=== PATIENT | male | born 1970 | race Hispanic/Latino ===

== ENCOUNTER 2020-02-06 15:55 | Emergency (ER) | payer OTHER ==
[~2020-02-06] VITALS: Ht 175.3 cm; Wt 100.7 kg
--- NOTE | 2020-02-06 15:58 | Emergency Department Note ---
History of Present Illnes History of Present Illness History of Present Illness This is a 49 year old male c/o cough and pleuritic c/p for 2 weeks, [facility] for [facility] few days ago, result pending. He has no fever no chill. He has finished z pack, steroid course, Phenergan DM. he is here for coughing, asking specifically Phenergan with codein. . Arrival Mode: Car Glass Finisher Required: No Radiation: Reports non-radiation Severity: moderate Duration (how long): week(s) Progression: waxing and waning Chronicity: recurrent Relieving factors: medication Exacerbating factors: none Associated symptoms: Reports denies other symptoms Treatments prior to arrival: none Previous service: medications given, tests performed Past Medical/Family History Physician Review I have reviewed the patient's past medical and family history. Any updates have been documented here. Past Medical History Recent Fever: No Clinical Suspicion of Infectio: No New/Unexplained Change in Ment: No Past Medical History: Hypertension Past Surgical History: None Social History Smoking Cessation: Unknown if ever smoked Any Illegal Drug Use: No Family History Family history of heart diseas: No Other Any Pre-Existing Lines (PICC,: No Review of Systems Review of Systems Constitutional: Reports no symptoms EENTM: Reports no symptoms Cardiovascular: Reports as per HPI Respiratory: Reports as per HPI, Reports chest congestion, Reports cough Gastrointestinal: Reports no symptoms Genitourinary: Reports no symptoms Musculoskeletal: Reports no symptoms Integumentary: Reports no symptoms Neurological: Reports no symptoms Psychological: Reports no symptoms Endocrine: Reports no symptoms Hematological/Lymphatic: Reports no symptoms Physical Exam Related Data Allergies: Coded Allergies: No Known Allergies (Unverified , 02/06/20) Vital signs reviewed: Yes (normal oxygen saturation) Physical Exam CONSTITUTIONAL Constitutional: Present well-developed, Present well-nourished HENT HENT: Present normocephalic, Present atraumatic, Present oropharynx clear/moist, Present nose normal HENT L/R: Present left ext ear normal, Present right ext ear normal EYES Eyes: Reports PERRL, Reports conjunctivae normal NECK Neck: Present ROM normal PULMONARY Pulmonary: Present effort normal, Present breath sounds normal CARDIOVASCULAR Cardiovascular: Present regular rhythm, Present heart sounds normal, Present capillary refill normal, Present normal rate GASTROINTESTINAL Abdominal: Present soft, Present nontender, Present bowel sounds normal GENITOURINARY Genitourinary: Present exam deferred SKIN Skin: Present warm, Present dry MUSCULOSKELETAL Musculoskeletal: Present ROM normal, Present other (wearing several rings including thumb ring) NEUROLOGICAL Neurological: Present alert, Present oriented x 3, Present no gross motor or sensory deficits PSYCHOLOGICAL Psychological: Present mood/affect normal, Present judgement normal Assessment & Plan Medical Decision Making MDM no fever, sat normal, doubt pna, likely bronchitis Assessment & Plan Final Impression: (1) Bronchitis Depart Disposition: HOME, SEL[facility] Meds Active Scripts Albuterol Sulfate (PROVENTIL HFA) 6.7 Gm Hfa.aer.ad, 1 INH INH Q4HR PRN for SHORTNESS OF BREATH, #1 INH Prov:JOMAR SAHNI MD 02/06/20 Codeine Phosphate/Guaifenesin (Codeine-Guaifen 10-100 mg/5 ml) 120 Ml Liquid, 5 ML PO Q6H for cough, #120 Prov:JOMAR SAHNI MD 02/06/20 Benzonatate (TESSALON PERLE) 100 Mg Capsule, 1 TAB PO QID PRN for cough, #20 Prov:JOMAR SAHNI MD 02/06/20 Reported Medications Losartan Potassium (LOSARTAN POTASSIUM) 100 Mg Tablet, 100 MG PO DAILY, TAB 02/06/20 Physician Attestation Provider Attestation MATERIALS DIRECTOR score risk 650 (mainly Benzo) JOMAR SAHNI MD Feb 06, 2020 15:58
[2020-02-06] MEDS ORDERED: LOSARTAN POTAS100 MG PO (16:08)
[2020-02-06] MEDS ORDERED: CODEINE-GUAIFE120 ML PO (16:22)
[2020-02-06] MEDS ORDERED: PROVENTIL HFA6.7 GM INH (16:22)
[2020-02-06] MEDS ORDERED: TESSALON PERLE100 MG PO (16:22)
== END 2020-02-06 16:31 | disposition home or self-care (01) ==
LOC: FSED 16:13
DX: J40 Bronchitis, not specified as acute or chronic (principal); R07.89 Other chest pain; R05 Cough; I10 Essential (primary) hypertension
CPT/HCPCS: 99282